=== PATIENT | male | born 1975 | race Two or more races ===

== ENCOUNTER 2021-12-16 17:53 | Emergency (ER) | payer OTHER ==
[~2021-12-16] VITALS: Ht 172.7 cm; Wt 93.9 kg
== END 2021-12-16 20:59 | disposition home or self-care (01) ==
LOC: ER 17:53
DX: J30.9 Allergic rhinitis, unspecified (principal)

== ENCOUNTER 2024-05-26 20:07 | Emergency (ER) | payer OTHER ==
[~2024-05-26] VITALS: Ht 172.7 cm; Wt 94.3 kg
[2024-05-26] MEDS ORDERED: KETOROLAC TROMETHAMINE 30 MG VIAL ONE (20:44)
[2024-05-26] MEDS ORDERED: FAMOTIDINE/PF 20 MG/2 ML VIAL ONE (20:44)
[2024-05-26] MEDS ORDERED: FAMOtidine 10 MG/ML (4ML VIAL) IV ONE (20:45)
[2024-05-26] MEDS ORDERED: KETOROLAC TROMETHAMINE 30 MG VIAL IU ONE (20:45)
[2024-05-26 21:03] LABS: HEMATOCRIT 46.7 % (39.0-48.0); HEMOGLOBIN 15.8 g/dL (13-16.00); MEAN CELL VOLUME 87.8 fL (80.0-100.00); MEAN CORPUSCULAR HEMOGLOBIN 29.7 pg (27.00-32.0); MEAN CORPUSCULAR HGB CONC 33.8 g/dl (32.0-36.0); PLATELET COUNT 242 K/uL (150-450); RED BLOOD COUNT 5.32 M/uL (4.00-6.00); RED CELL DISTRIBUTION WIDTH 13.2 % (11.5-14.5)
[2024-05-26 21:16] LABS: INR < 0.93; PARTIAL THROMBOPLASTIN TIME 22.2 SECONDS (22.0-34.0); PROTHROMBIN TIME 10.2 SECONDS (9.0-11.5)
[2024-05-26 21:19] LABS: ALBUMIN 3.8 gm/dL (3.4-5.0); BILIRUBIN TOTAL 0.32 mg/dL (0.3-1.2); CALCIUM 9.4 mg/dL (8.5-10.1); CREATININE SERUM 1.11 mg/dL (0.70-1.30); GFR 70.7; GLOBULINA 4.2 G/DL (2.4-3.5); POTASSIUM 4.55 mEq/L (3.5-5.1)
[2024-05-26] MEDS ORDERED: PEPCID AC20 MG PO (23:06)
== END 2024-05-26 23:53 | disposition home or self-care (01) ==
LOC: ER 20:09
PROVIDERS: General Practice
DX: R10.9 Unspecified abdominal pain (principal); R10.31 Right lower quadrant pain
CPT/HCPCS: 36415; 74177; Q9965